=== PATIENT | male | born 1980 | race Caucasian/White ===

== ENCOUNTER 2017-10-07 11:31 | Emergency (ER) | payer BC ==
[~2017-10-07] VITALS: Ht 182.9 cm; Wt 90.7 kg
[2017-10-07 12:01] VITALS: BP 161/74
[2017-10-07] MEDS ORDERED: ASPIRIN PO STA (12:09)
--- NOTE | 2017-10-07 12:11 | ER.PDOC ---
General Chief Complaint: General Complaint Stated Complaint: GENEREAL COMPLAINT Time seen by MD: 12:10 Source: patient Exam Limitations: no limitations History of Present Illness Initial Comments Chest pain 3 days ago. No pain today but came to be checked. Severity/Quality: mild, dull Radiation: no radiation Activities at Onset: rest Prior CP/Workup: No Prior Chest Pain Nitro Today/Relief: No Nitro Taken Today Aspirin Today: 325 mg x 1 Associated Symptoms: denies symptoms Allergies: Coded Allergies: No Known Allergies (Unverified , 10/07/17) Past Medical History Medical History: no pertinent history Surgical History: no surgical history Social History Smoking: non-smoker Alcohol Use: occassionally Drug Use: none EENTM: no symptoms reported Respiratory: no symptoms reported Cardiovascular: see HPI Gastrointestinal: no symptoms reported Genitourinary: no symptoms reported All Other Systems: Reviewed and Negative Physical Exam General Appearance: No Apparent Distress, WD/WN HEENT: PERRL/EOMI, Normal ENT Inspection, TMs Normal, Pharynx Normal Neck: Non-Tender, Full Range of Motion, Supple, Normal Inspection Respiratory: chest non-tender, lungs clear, normal breath sounds, no respiratory distress, no accessory muscle use Cardiovascular: Normal Peripheral Pulses, Regular Rate, Rhythm, No Edema, No Gallop, No JVD, No Murmur Gastrointestinal: Normal Bowel Sounds, No Organomegaly, No Pulsatile Mass, Non Tender, Soft Extremities: Normal Range of Motion, Non-Tender, Normal Inspection, No Pedal Edema, No Calf Tenderness, Normal Capillary Refill 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
[2017-10-07] MEDS ORDERED: ASPIRIN ONE (12:13)
[2017-10-07 12:25] LABS: BASOPHIL % 0.2 % (0.0-0.2); EOSINOPHIL # 0.1 10^3/uL (0.0-0.2); EOSINOPHIL % 1.5 % (0.0-5.0); HEMOGLOBIN 16.5 g/dL (13.9-16.3); LYMPHOCYTES # 1.7 10^3/uL (1.0-4.8); LYMPHOCYTES % 30.8 % (24.0-44.0); MEAN CELL HGB 30.5 pg (26-34); MEAN CELL HGB CONCENTRATION 34.2 g/dL (33-37); MEAN CORP VOLUME 89.1 fL (78-100); MEAN PLATELET VOLUME 10.7 fL (7.8-11.0); MONOCYTES # 0.3 10^3/uL (0.3-0.8); MONOCYTES % 5.9 % (5.0-12.0); NEUTROPHIL # 3.4 10^3/uL (1.8-7.7); NEUTROPHILS % 61.4 % (41.0-85.0); RED CELL DISTRIBUTION WIDTH 12.8 % (11.5-14.5); WHITE BLOOD CELL 5.5 10^3/uL (4.5-11.0)
--- NOTE | 2017-10-07 12:29 | PCM.EKG ---
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
--- NOTE | 2017-10-07 12:44 | DIREP ---
PROCEDURE:CHEST 1 VIEW COMPARISON:None. INDICATIONS:Chest pain FINDINGS: LUNGS/PLEURA:No significant pulmonary parenchymal abnormalities. No effusions. VASCULATURE:Normal. Unremarkable pulmonary vasculature. CARDIAC:Normal. No cardiac silhouette abnormality or cardiomegaly. MEDIASTINUM:Normal. No visible mass or adenopathy. BONES:Normal. No fracture or visible bony lesion. OTHER:Negative. CONCLUSION:Normal examination. Dictated by: Darin Alvarez MD on 10/07/2017 at 12:43 PM
[2017-10-07 12:59] LABS: ALANINE AMINOTRANSFERASE(ML) 90 U/L (12-78); ALKALINE PHOSPHATASE 75 U/L (50-136); ASPARTATE AMINO TRANSFERASE 33 U/L (0-35); CALCIUM 9.3 mg/dL (8.4-10.5); CARBON DIOXIDE 23.1 mmol/L (20.0-32); GLUCOSE 96 mg/dL (70-110)
[2017-10-07 13:00] VITALS: BP 150/71
[2017-10-07 13:30] VITALS: BP 148/70
[2017-10-07 13:41] VITALS: BP 148/70
== END 2017-10-07 13:33 | disposition home or self-care (01) ==
LOC: ER 11:31
DX: R07.9 Chest pain, unspecified (principal)
CPT/HCPCS: 36415; 71045; 80053; 82550; 82553; 84484; 85025; 93005; 99285

== ENCOUNTER → 2020-11-04 | Outpatient (CLI) | payer BC ==
--- NOTE | 2020-11-04 14:40 | DIREP ---
PROCEDURE:US ANKLE BRACHIAL INDEX COMPARISON:None. INDICATIONS:INTERMITTENT CLAUDICATION TECHNIQUE:A color duplex Doppler ultrasound examination of the bilateral lower extremities was performed. Color image and bidirectional spectral Doppler wave form analysis, and peak systolic flow measurements of the posterior tibial and dorsalis pedis arteries were performed. FINDINGS: RIGHT LOWER EXTREMITY: RODERICK DP: 1.04. PT: 0.99. POSTERIOR TIBIAL (dist):61.4 cm/sTriphasic DORSALIS PEDIS:70.0 cm/sTriphasic LEFT LOWER EXTREMITY: RODERICK DP: 1.02. PT: 1.04. POSTERIOR TIBIAL (dist):61.9 cm/sTriphasic DORSALIS PEDIS:51.2 cm/sTriphasic CONCLUSION: No significant obstructive disease by RODERICK. ABIs greater than 1.4 indicate noncompressible vessels, likely to have significant peripheral vascular disease (PVD). ABIs of 0.91 to 1.3 indicate no significant obstructive disease. ABIs of 0.41 to 0.90 indicate grade I claudication. ABIs less than 0.4 indicate limb-threatening ischemia of grade I or grade II. Dictated by: SALAS Physician on 11/04/2020 at 02:32 PM ac
== END | disposition home or self-care (01) ==
LOC: RAD 12:02
PROVIDERS: ATTEND Nurse Practitioner Family
DX: I73.9 Peripheral vascular disease, unspecified (principal)
CPT/HCPCS: 93922